=== PATIENT | female | born 1955 | race Asian ===

== ENCOUNTER 2018-08-13 12:03 | Day surgery (SDC) | payer OTHER, SELFPAY ==
--- NOTE | 2018-08-13 | PATH_ITS ---
[facility] Accession Number: [id number] . 01 Material submitted: . PART A: TRANSVERSE COLON POLYP PART B: SIGMOID COLON POLYP . 02 Diagnosis: A. Transverse Colon, Polyp, Biopsy: Benign lymphoid aggregate. . B. Sigmoid Colon, Polyp, Biopsy: Tubular adenoma. MRV/08/14/2018 . 02 Electronically signed: . Harriet Gamez MD, Pathologist NPI- [id number] . 01 Gross description: . Received two formalin-filled containers, both labeled with the patient's name: . A. In a container labeled transverse col. polyp, are two less than 0.1 cm to 0.3 cm portions of tissue, entirely submitted in cassette A. B. In a container labeled sigmoid col. polyp, are two 0.2-0.3 cm portions of tissue, entirely submitted in cassette B. ([id number]) /FRR . 02 Pathologist provided ICD-10: D12.5 . 02 CPT . 258824, 715835 Performed at: 01 [facility] [address], [place], [place] [id number] MD Luis F Ravi MD Phone: [phone] Performed at: 02 [facility] [address] [place], [place] [id number] MD Roberto Nobles MD Phone: [phone]
[2018-08-13] MEDS: SODIUM CHLORIDE 0.9% 1,000 ML 100 ML IV (12:18)
[2018-08-13 12:24] VITALS: BP 168/83; PULSE 76; RESP 12; TEMP 36.3; O2SAT 96; BMI 25.4
--- NOTE | 2018-08-13 13:37 | PM.HP.1 ---
History of Present Illness Date Patient Seen: 08/13/18 Time Patient Seen: 13:37 Chief complaint: [id number] Narrative: Colorectal cancer screening. Patient History Medical History Diabetes mellitus (Acute) Hypercholesterolemia (Acute) Hypertension (Acute) Family & Social History Social History: household members spouse Exam Vital Signs (past 8 hours): - 08/13/18 12:24 Temperature 97.3 F L Pulse Rate 76 Respiratory Rate 12 Blood Pressure 168/83 H Pulse Oximetry 96 Oxygen Delivery Method Room Air Narrative Exam Narrative: Oropharynx: Free of lesion Chest: Clear to auscultation and percussion Cardiac exam: No S3 or murmur Assessment & Plan Plan: Assessment/Plan Narrative: Need for screening colonoscopy. Sounds as if she has never had a complete screening colonoscopy in the past. Further recommendations will follow the results of the study.
--- NOTE | 2018-08-13 13:40 | P.HP_ITS ---
History of Present Illness Date Patient Seen: 08/13/18 Time Patient Seen: 13:37 Chief complaint: [id number] Narrative: Colorectal cancer screening. Patient History Medical History Diabetes mellitus (Acute) Hypercholesterolemia (Acute) Hypertension (Acute) Family & Social History Social History: household members spouse Exam Vital Signs (past 8 hours): - 08/13/18 12:24 Temperature 97.3 F L Pulse Rate 76 Respiratory Rate 12 Blood Pressure 168/83 H Pulse Oximetry 96 Oxygen Delivery Method Room Air Narrative Exam Narrative: Oropharynx: Free of lesion Chest: Clear to auscultation and percussion Cardiac exam: No S3 or murmur Assessment & Plan Plan: Assessment/Plan Narrative: Need for screening colonoscopy. Sounds as if she has never had a complete screening colonoscopy in the past. Further recommendations will follow the results of the study.
[2018-08-13] MEDS: fentaNYL 250 MCG/5 ML INJ IV (13:45)
--- NOTE | 2018-08-13 13:53 | PM.OP.ENDO ---
Operative Date/Time/Diagnoses Date of procedure: 08/13/18 Time of procedure: 13:53 Pre-op diagnosis: See indications Post-op diagnosis: same Procedure & Clinicians Study performed: Colonoscopy Same procedure as scheduled: Yes Indications: Screening Surgeon: Cassi Flores Procedure Notes Procedure in detail: After informed consent was obtained the patient was placed in the left lateral decubitus position. Video colonoscope was introduced the rectum slowly advanced to the cecum. On slow withdrawal mucosa was carefully examined. The scope was removed. The patient tolerated the procedure well. Blood loss none Complications none Sedation Fentanyl 100 mcg Versed 5 mg IV titration Total sedation time a 15 min Findings 1. 3 mm polyp in the transverse colon. Jumbo biopsy removed. 2. 5 mm polyp in the sigmoid colon at about 20 cm. Jumbo biopsy x2 removed completely. 3. Scattered diverticulosis 4. Otherwise negative colonoscopy to cecum We will be in touch regarding biopsies. She most likely will need follow-up colonoscopy in 5 years.
[2018-08-13 13:55] VITALS: BP 118/76; PULSE 78; RESP 14; TEMP 36.3; O2SAT 91
[2018-08-13] MEDS: MIDAZOLAM 5 MG/5 ML VIAL IV (13:56)
[2018-08-13 14:00] VITALS: BP 116/73; PULSE 78; RESP 14; O2SAT 92
[2018-08-13 14:05] VITALS: BP 131/91; PULSE 91; RESP 14; TEMP 36.1; O2SAT 96
[2018-08-13 14:10] VITALS: BP 127/84; PULSE 88; RESP 14; TEMP 36.3; O2SAT 96
[2018-08-13 14:19] VITALS: BP 141/84; PULSE 89; RESP 15; TEMP 36.6; O2SAT 94
== END 2018-08-13 14:45 | disposition home or self-care (01) ==
PROVIDERS: Visit Provider Internal Medicine Gastroenterology
PROC: 0DJD8ZZ Inspection of Lower Intestinal Tract, Via Natural or Artificial Opening Endoscopic (ICD-10-PCS; CPT 45378; principal; 2018-08-13 13:30)
DX: Z12.11 Encounter for screening for malignant neoplasm of colon (principal); D12.5 Benign neoplasm of sigmoid colon; K57.30 Diverticulosis of large intestine without perforation or abscess without bleeding; K63.5 Polyp of colon; E11.9 Type 2 diabetes mellitus without complications; E78.00 Pure hypercholesterolemia, unspecified; I10 Essential (primary) hypertension; Z79.84 Long term (current) use of oral hypoglycemic drugs; Z79.82 Long term (current) use of aspirin; Z79.899 Other long term (current) drug therapy
CPT/HCPCS: 45380; 88305; J2250; J3010

== ENCOUNTER → 2021-01-12 07:48 | Outpatient (CLI) | payer OTHER, SELFPAY ==
--- NOTE | 2021-01-12 07:49 | DI.US.S_ITS ---
PROCEDURE: US BREAST RT LIMITED COMPARISON: None. INDICATIONS: CLIP PLACEMENT CHECK FINDINGS: IMPRESSION: Dictated by: Clayton Hughes M.D. on 01/12/2021 at 12:00 Approved by: Clayton Hughes M.D. on 01/12/2021 at 12:03
--- NOTE | 2021-01-12 08:32 | DI.US.S_ITS ---
Date: 01/12/2021 08:32 At the request of: AMEE SCHNEIDER Procedure: US breast RT limited ULTRASOUND OF RIGHT BREAST: 01/12/2021 CLINICAL: [id number] clip placement. Comparison is made to exams dated: 11/30/2020 ultrasound biopsy, 11/30/2020 mammogram, 11/15/2020 ultrasound, [facility] 07/[facility]/2017 mammogram, and 03/19/2016 mammogram - [facility]. Real-time ultrasound of the right breast was performed. Olvera scale images of the real-time examination were reviewed. There is an irregular mass in the right breast at 12 o'clock posterior depth 5 cm from the nipple. This irregular mass is hypoechoic. There is an associated biopsy clip. IMPRESSION: KNOWN BIOPSY PROVEN MALIGNANCY The irregular mass in the right breast is a known biopsy positive for malignancy. The mass and biopsy clip are visualized with ultrasound, and ultrasound-guided wire localization is feasible. This exam was interpreted at Station ID: [id number]. Electronically Signed By: Clayton feliciano/bryanna:01/12/2021 12:03:29 Ultrasound BI-RADS: 6 Known biopsy proven malignancy
== END ==
PROVIDERS: PCP Family Medicine; Referring Provider Surgery; Visit Provider Surgery
DX: C50.811 Malignant neoplasm of overlapping sites of right female breast (principal)
CPT/HCPCS: 76642

== ENCOUNTER → 2021-01-16 10:22 | Outpatient (CLI) | payer OTHER, SELFPAY ==
[2021-01-16 12:02] LABS: COVID19 -Nasal RAPID Negative (Negative)
== END ==
PROVIDERS: PCP Family Medicine; Visit Provider Surgery
DX: Z01.812 Encounter for preprocedural laboratory examination (principal); Z20.822 Contact with and (suspected) exposure to COVID-19
CPT/HCPCS: 87635; C9803

== ENCOUNTER 2021-01-17 06:41 | Day surgery (SDC) | payer OTHER, SELFPAY ==
[2021-01-17] VITALS (11 sets, daily range): BP systolic 136–157; BP diastolic 73–86; PULSE 71–81; RESP 12–18; TEMP 36.2–37; O2SAT 92–100; BMI 23.4
--- NOTE | 2021-01-17 | PATH_ITS ---
[facility] Accession Number: [id number] . 01 Material submitted: . PART A: breast - BREAST RIGHT PART B: axilla - RIGHT AXILLA SENTINAL NODE . 01 Clinical history: . SDC A: SHORT STITCH SUPERIOR, LONG STITCH LATERAL . 01 Diagnosis: A. Right Breast, Lumpectomy: Invasive (ductal) carcinoma, grade 2 of 3 ([place] combined histologic grade, total score 6/9), with the following features: 1. Tumor size (invasive component): 6 mm by microscopic measurement (6 x 3 mm) 2. Nuclear pleomorphism: Intermediate. (2/3) 3. Mitotic rate: Low. (1/3) 4. Tubular differentiation: Little degree. (3/3) 5. Ductal carcinoma in situ: present, moderate nuclear grade without necrosis (cribriform pattern), largest linear span of 5 mm, involving blocks A7-A8. 6. Calcification: Present, in association with benign breast tissue. 7. Lymphatic invasion: Not identified. 8. Resection margins: - Invasive carcinoma: Negative, with the closest distance to the following margins as follows: - Posterior margin: 2.0 mm (in blocks A7 and A8). - Inferior margin: 5.5 mm. - Anterior and Superior margins: 7 mm. - All other margins: More than 10 mm. - Ductal carcinoma in situ: Negative, with the closest distance to the following margins as follows: - Posterior margin: 2.2 mm. - Inferior margin: 5.5 mm. - Anterior and Superior margins: 8 mm. - All other margins: More than 10 mm. 9. Prognostic markers (performed on prior biopsy, [facility] Case #[id number], Collection Date: 11/30/2020) with the following reported findings: Per the report: - Estrogen receptor: Positive. - Progesterone receptor: Positive. - HER2: Negative. 10. Regional lymph node status (see part B below): One sentinel lymph node, negative for malignancy (0/1). 11. Additional findings: - Skin and nipple are not present for evaluation. - Skeletal muscle is present and uninvolved. - Biopsy site changes and associated extensive giant cell reaction are present. - Background breast with microcystic duct dilatation, columnar cell change, secretory change, and stromal fibrosis. 12. Pathologic stage: pT1b pN0(sn) . B. Right Axillary [place] Lymph Node, Excisional Biopsy: One sentinel lymph node, negative for malignancy (0/1). [facility] 01/23/2021 1151 Local . 01 Electronically signed: . Arabella Holden MD, Pathologist NPI- [id number] . 01 Gross description: . A. The specimen is received in formalin, labeled right breast and consists of a right lumpectomy specimen. Weight: 10 grams. Measurement: 4.6 cm from medial to lateral by 4.0 cm from superior to inferior by 2.2 cm from anterior to posterior. Skin: Absent. Wire: Present, penetrating the lateral side and terminating at the medial side. Margins: The specimen is oriented with a short suture designated superior and a long suture designated lateral. The specimen is inked as follows: superior blue, inferior green, anterior red, posterior black, medial yellow and lateral orange. Sliced: Medial to lateral into 11 slices. Lesions: There is a 0.8 x 0.7 x 0.6 cm ayala firm presumed biopsy site within slices 7-9. No biopsy marker is identified. Distance to Margins: 0.2 cm from the posterior margin, 0.6 cm from the inferior margin, 0.7 cm from the superior margin, 1.0 cm from the anterior margin and greater than 1 cm from the medial and lateral margins. Other: The remaining cut surfaces are composed of approximately 65% ayala-yellow adipose tissue, 30% ayala-white fibrous tissue and 10% red-brown skeletal muscle. The specimen is entirely submitted: A1: slice 1, medial margin, perpendicularly sectioned. A2-A10: slices 2-10 (biopsy site in A7-A9). A11-A12: slice 11, lateral margin, perpendicularly sectioned. Formalin fixation time: Approximately 27 hours. Grossing/Staining of the specimen was reviewed with the PA by . . B. The specimen is received in formalin, labeled right axilla sentinel node and consists of a 2.5 x 2.0 x 1.0 cm ayala-yellow fragment of adipose tissue with a 1.4 x 1.0 x 0.7 cm lymph node. The lymph node is bisected and entirely submitted in cassette B1. (EA:[id number]) /MRV 01/23/2021 1015 Local . 01 Microscopic: . P63 and smooth muscle myosin immunostains are performed on block A8 in order to assess areas for carcinoma in situ close to cauterized margins. There is focal retention of myoepithelial markers in support of in-situ carcinoma and the margin details in the diagnosis. Deeper levels are examined on A8 and A7. Perineural invasion is present. . * This test was developed and its performance characteristics determined by [facility]. It has not been cleared or approved by the U.S. Food and Drug Administration. The FDA has determined that such clearance or approval is not necessary. This test is used for clinical purposes. It should not be regarded as investigational or for research. . 01 Pathologist provided ICD-10: C50.911 . 01 CPT . 824451, 268164, T65788, O45503 Performed at: 01 [facility] [address] [place] [address], [place], [place] [id number] MD Luis F Ravi MD Phone: [phone]
--- NOTE | 2021-01-17 | DI.MG.S_ITS ---
SPECIMEN: 01/17/2021 CLINICAL: Right breast specimen. Correlation is made to exams dated: 01/17/2021 mammogram - [facility], 11/30/2020 ultrasound biopsy, and 11/15/2020 mammogram - [facility]. The tip of the localizing wire is present. Also visualized within the specimen is the nearby biopsy clip. IMPRESSION: SPECIMEN The localizing wire and the biopsy clip are both within the specimen. This exam was interpreted at Station ID: [id number]. Clementina cortes/penrad:01/17/2021 12:07:27
--- NOTE | 2021-01-17 | DI.MG.S_ITS ---
UNILATERAL RIGHT DIGITAL DIAGNOSTIC MAMMOGRAM POST-NEEDLE BIOPSY: 01/17/2021 CLINICAL: Right breast cancer. Comparison is made to exams dated: 11/30/2020 ultrasound biopsy, 11/15/2020 mammogram - [facility], and 07/30/2017 mammogram - [facility]. There are scattered fibroglandular elements in right breast. There is a localization wire in the right breast at 12:00. IMPRESSION: KNOWN BIOPSY PROVEN MALIGNANCY Localization wire in the right breast at 12:00. This exam was interpreted at Station ID: [id number]. NOTE: For mammograms, a report in lay terms will be sent to the patient. Approximately 15% of breast malignancies will not be visualized mammographically. In the management of a palpable breast mass, a negative mammogram must not discourage biopsy of a clinically suspicious lesion. Electronically Signed By: Clementina Hong M.D. fx/:01/17/2021 11:41:12 ACR BI-RADS Category 6: Known biopsy proven malignancy 3346F
--- NOTE | 2021-01-17 06:45 | DI.NM.S_ITS ---
PROCEDURE: NM SENTINEL NODE W IMAGING RADIOPHARMACEUTICAL: 0.5-1.0 mCi Millipore filtered Tc-99m sulfur colloid. INDICATIONS: right breast cancer COMPARISON: [facility], US, US BREAST RT LIMITED, 01/12/2021, 8:38. [facility], , MM DIAGNOSTIC MAMMO UNILAT RT2D, 01/17/2021, 9:19. [facility], , US BREAST NEEDLE LOC RT, 01/17/2021, 8:58. TECHNIQUE: The area around the nipple was prepped and draped in a sterile fashion. Tc-99m sulfur colloid was injected intra-dermally in the outer edge of the areola in the right breast. Images were obtained subsequently. A body contour outline was obtained. FINDINGS: There is a sentinel lymph node(s) in the ipsilateral right axilla. IMPRESSION: A sentinel lymph node is present in the right axilla. Dictated by: Clementina Hong M.D. on 01/17/2021 at 9:58 Approved by: Clementina Hong M.D. on 01/17/2021 at 10:00
--- NOTE | 2021-01-17 06:45 | DI.US.S_ITS ---
NEEDLE LOCALIZATION RIGHT BREAST: 01/17/2021 CLINICAL: Pre-op wire localization with ultrasound guidance. Correlation is made to exams dated: 01/12/2021 ultrasound - [facility], 11/30/2020 ultrasound biopsy, 11/30/2020 mammogram, 11/15/2020 ultrasound, 11/15/2020 mammogram - [facility], and 07/30/2017 mammogram - [facility]. A wire localization was performed for the abnormality located in the right breast at 12 o'clock. The skin was prepped in the usual manner. A needle was inserted into the targeted area. Localization wire was placed and needle was removed. IMPRESSION: NEEDLE LOCALIZATION Wire localization for the abnormality in the right breast at 12 o'clock was successful. This exam was interpreted at Station ID: [id number]. Clementina Hong M.D. fx/:01/17/2021 10:05:53
--- NOTE | 2021-01-17 09:33 | SUR.PREOP ---
pt arrived back to pre-op and fluids were hung. pt placed on stretcher and call means within reach.
[2021-01-17] MEDS: LACTATED RINGERS 1,000 ML 100 ML IV (09:47)
--- NOTE | 2021-01-17 10:43 | PM.PREOP ---
Pre-operative Note Interval Note History & Physical reviewed/Exam performed by Physician: Yes Changes to H&P: No
[2021-01-17] MEDS: CEFAZOLIN 2 GM/100 ML FROZ.PIGGY IV (10:54)
--- NOTE | 2021-01-17 11:24 | SUR.OPER ---
Supine on padded OR bed, head on pillow, arms secured on padded arm boards at <90 degrees abduction, legs uncrossed, safety belt at thigh, tape over blanket over lower legs.
[2021-01-17] MEDS: BUPIVACAINE 0.25% (PF) VIAL 30 ML INJ (11:37)
[2021-01-17] MEDS: METHYLENE BLUE 50 MG/10 ML VIAL 25 MG INJ (11:37)
[2021-01-17] MEDS: HYDROMORPHONE 2 MG INJ IV ×4 (13:30→13:51)
[2021-01-17] MEDS: OXYCODONE/ACETAMINOPHEN 5/325 TABLET 1 TAB PO ×2 (13:30→13:59)
--- NOTE | 2021-01-17 13:42 | PM.OP.1 ---
Operative Date/Time/Diagnoses Date of procedure: 01/17/21 Time of procedure: 13:42 Pre-op diagnosis: Right breast cancer Post-op diagnosis: same Procedure & Clinicians Procedure: Right partial lumpectomy Right axillary sentinel node biopsy x 1 Same procedure as scheduled: Yes Indications: 65-year-old female with biopsy-proven right breast invasive ductal carcinoma, clinically node negative ER positive, ID positive, HER2 negative. Primary mass is 0.7 cm. Surgeon: Brian Grimm Anesthesia Type: General Operative Notes Findings: Right breast mass with wire and clip within the specimen [place] node identified by methylene blue dye and radioactive tracer Specimen(s): other (sentinel node. Right lumpectomy) Estimated Blood Loss (mL): 50 Procedure in detail: The patient underwent needle localized prior to the operation. They were brought to the operating room and placed supine on the table. Bilateral lower extremity compression devices were applied. They were intubated with an LMA. 3 ml of methlyene blue was injected into the dermal space around the areola and massaged into the tissue for 4 minutes. They were prepped and draped in sterile fashion. Time-out was performed. A curvilinear incision on the superior aspect of the right breast was made and subcutaneous tissues were divided. The localizing wire was identified and then brought back within the incision. The end of the wire was within a posterior depth breast mass just superficial to the pectoralis. The mass was excised with the wire and the clip. Specimen was marked short stitch superior long stitch lateral. Imaging demonstrated that the specimen contained the wire and the associated clip. Subcutaneous tissues were reapproximated with 3 0 Vicryl sutures skin closed with Monocryl followed by application of Dermabond. An incision was made in the right axilla overlaying the area with the greatest Neoprobe signal. Dissection was carried down through the subcutaneous tissue towards the chest wall guided by the Neoprobe. One sentinel node was found, the count was 47 it was slightly blue in its appearance. The node was removed the tissue was ligated with silk suture. The background count following removal of the node was 3. Hemostasis was achieved. The subcutaneous tissue was closed with vicryl the skin with 4-o monocryl followed by dermabond. The counts were correct. They emerged from anesthesia and were transferred to recovery in stable condition. Complications: none Post-operative Condition: stable Disposition: same day surgery
== END 2021-01-17 14:34 | disposition home or self-care (01) ==
PROVIDERS: PCP Family Medicine; Referring Provider Family Medicine; Visit Provider Surgery
PROC: (CPT 38500; principal; 2021-01-17 10:45)
DX: C50.911 Malignant neoplasm of unspecified site of right female breast (principal); Z17.0 Estrogen receptor positive status [ER+]; I10 Essential (primary) hypertension; E11.9 Type 2 diabetes mellitus without complications; E78.00 Pure hypercholesterolemia, unspecified; Z79.84 Long term (current) use of oral hypoglycemic drugs
CPT/HCPCS: 38500; 19125; 38900; 19285; 76098; 77065; 78195; A9541; C1819; J0690; J1100; J1170; J1885; J2250; J2405; J2704; J3010; Q9968

== ENCOUNTER → 2021-01-23 07:29 | Outpatient (CLI) | payer OTHER, SELFPAY ==
--- NOTE | 2021-01-23 07:30 | DI.ECHO.S_ITS ---
[facility]---------+ [facility] +---------+ : : [address] : : : : [id number] : : : : Phone: [phone] Echocardiogram Report + + :Name: NATALIO SHAFER Study Date: 01/23/2021 Height: 60 in : :[facility] ReadingLocation: Weight: 122 lb : : Gender: Female BSA: 1.5 m2 : :: 1955 Age: 65 yrs BP: 164/97 mmHg: :Reason For Study: BREAST CANCER : :Ordering Physician: VIRAJ, : :TYE Performed By: Mayra Huff : :Referring: TYE CALI : + + Interpretation Summary Normal left ventricle size with ejection fraction 60-65%. Left ventricular global longitudinal strain average is -17.0%. Mild aortic valve sclerosis. No valvular regurgitation. Procedure: A two-dimensional transthoracic echocardiogram with color flow and Doppler was performed. The study quality was technically adequate. There is no prior echocardiogram noted for this patient. The patient was in sinus rhythm with heart rates between 70-80 bpm during the exam. Left Ventricle: The left ventricle is normal in size and wall thickness. The ejection fraction is estimated to be 60-65%. Left ventricular global longitudinal strain average is -17.0%. There are no focal wall motion abnormalities. Diastolic parameters suggest probable normal left ventricular diastolic function and normal filling pressures. Right Ventricle: The right ventricle grossly appears normal in size with probable normal systolic function. Atria: Both atria are normal in size. There is no Doppler evidence for an interatrial shunt. Mitral Valve: The mitral valve is normal in structure and function. There is trace mitral regurgitation. Aortic Valve: The aortic valve is trileaflet. The aortic valve opens well. There is mild aortic valve sclerosis. There is no aortic valve stenosis. No aortic regurgitation is present. Tricuspid Valve: The tricuspid valve is normal in structure and function. The right ventricular systolic pressure is estimated to be at least 25 mmHg based on an estimated right atrial pressure of 3 mm Hg. There is trace tricuspid regurgitation. Pulmonic Valve: The pulmonic valve leaflets are thin and pliable; valve motion is normal. There is no pulmonic valvular regurgitation. Great Vessels: The aortic root is normal size. The ascending aorta is mildly enlarged. The IVC is of normal diameter and collapses greater than 50% with a sniff. This suggests a low right atrial pressure of 3 mm Hg. Pericardium/ Pleura There is no pericardial effusion. There is no pleural effusion. MMode/2D Measurements & Calculations LVIDd: 4.0 cm LVOT diam: 1.9 cm LVIDs: 2.7 cm Ao root diam: 2.7 cm FS: 31.2 % asc Aorta Diam: 3.5 cm EPSS: 0.86 cm Ao Arch Diam (Prox Trans): 2.9 cm IVSd: 1.1 cm LVPWd: 0.86 cm LV armenta. diameter/BSA (cm/m^2): 2.6 LV sys. diameter/BSA (cm/m^2): 1.8 LA A2 area: 15.0 cm2 RA long axis: 4.2 cm LA A4 area: 13.3 cm2 RA area: 11.7 cm2 LA length (vol): 4.4 cm RA vol: 27.3 ml LA vol: 38.7 ml RA : 18.0 ml/m2 LA vol index: 25.6 ml/m2 IVC diam: 1.1 cm RVD1 (basal): 3.0 cm TAPSE: 1.6 cm Doppler Measurements & Calculations Ao V2 max: 121.6 cm/sec LVOT Max Brendan: 90.4 cm/sec Ao V2 mean: 88.9 cm/sec LV V1 max P.3 mmHg Ao max P.9 mmHg LV V1 VTI: 20.1 cm Ao mean P.4 mmHg YOLANDA(I,D): 2.5 cm2 Ao V2 VTI: 22.7 cm YOLANDA(V,D): 2.1 cm2 sev ratio: 0.89 YOLANDA indexed to BSA (cm^2/m^2): 1.6 MV E max brendan: 70.2 cm/sec TR max brendan: 235.0 cm/sec MV A max brendan: 84.5 cm/sec TR max P.1 mmHg MV E/A: 0.83 PA V2 max: 77.9 cm/sec Med Peak E' Brendan: 7.8 cm/sec PA V2 mean: 49.5 cm/sec E/E' med: 9.0 PA mean P.2 mmHg Lat Peak E' Brendan: 7.8 cm/sec PA pr(Accel): 51.6 mmHg E/E' lat: 9.0 E/e' average: 9.0 MV dec time: 0.25 sec [facility] 55.7 ml Electronically signed by: Soila Chavez on Reading Physician:01/23/2021 10:21 AM
== END ==
PROVIDERS: PCP Family Medicine; Referring Provider Internal Medicine Hematology & Oncology; Visit Provider Internal Medicine Hematology & Oncology
DX: I77.89 Other specified disorders of arteries and arterioles (principal); C50.411 Malignant neoplasm of upper-outer quadrant of right female breast; Z17.0 Estrogen receptor positive status [ER+]
CPT/HCPCS: 93306

== ENCOUNTER → 2021-05-01 08:04 | Outpatient (CLI) | payer OTHER, SELFPAY ==
[2021-05-01 08:28] LABS: Add Manual Diff / Slide Review NO; Basophils Absolute Auto 0 /uL (0-100); Basophils Percent Auto 0.6 % (0-2); Eosinophils Absolute Auto 100 /uL (0-450); Eosinophils Percent Auto 1.8 % (2-4); Hematocrit 45.4 % (36-46); Hemoglobin 15.4 g/dL (12.0-16.0); Lymphocytes Absolute Auto 1000 /uL (1100-4500); Lymphocytes Percent Auto 15.7 % (25-40); Mean Corpuscular HGB Conc 33.9 % (30-36); Mean Corpuscular Hemoglobin 27.4 PG (26-34); Mean Corpuscular Volume 80.9 fL (80-100); Monocytes Absolute Auto 400 /uL (0-900); Monocytes Percent Auto 6.2 % (3-14); Neutrophils Absolute Auto 4600 /uL (1500-7000); Neutrophils Percent Auto 75.7 % (50-75); Platelet Count 283 X10^3/uL (150-400); Red Blood Cell Count 5.61 X10^6/uL (4.0-5.2); Red Cell Distribution Width 13.9 % (11.6-14.8); White Blood Cell Count 6.1 X10^3/uL (4.5-11.0)
[2021-05-01 08:36] LABS: Alanine Aminotransferase 24 IU/L (<35); Albumin 4.6 g/dL (3.5-5.0); Albumin Globulin Ratio 1.3 (1.0-2.8); Alkaline Phosphatase 81 U/L (38-126); Aspartate Aminotransferase 22 IU/L (14-36); BUN Creatinine Ratio 24.4 (6-22); Bilirubin Total 0.5 mg/dL (0.2-1.3); Blood Urea Nitrogen 20 mg/dL (7-17); Calcium 9.9 mg/dL (8.4-10.2); Carbon Dioxide 25 mmol/L (22-32); Chloride 103 mmol/L (98-107); Estimated Glomerular Filt Rate > 60.0 mL/min (>60); Globulin 3.6 g/dL (1.7-4.1); Glucose 255 mg/dL (80-110); HEMOLYSIS < 15 (0-50); Potassium 3.9 mmol/L (3.4-5.1); Sodium 139 mmol/L (137-145); Total Protein 8.2 g/dL (6.3-8.2)
== END ==
PROVIDERS: PCP Family Medicine; Referring Provider Internal Medicine Hematology & Oncology; Visit Provider Internal Medicine Hematology & Oncology
DX: M81.0 Age-related osteoporosis without current pathological fracture (principal); Z17.0 Estrogen receptor positive status [ER+]; C50.411 Malignant neoplasm of upper-outer quadrant of right female breast
CPT/HCPCS: 36415; 77080; 80053; 85025

== ENCOUNTER → 2021-05-18 07:58 | Outpatient (CLI) | payer OTHER, SELFPAY ==
--- NOTE | 2021-05-18 08:00 | DI.US.S_ITS ---
LIMITED ULTRASOUND OF RIGHT BREAST: 05/18/2021 CLINICAL: Palpable mass above rt nipple. HX of breast CA in right breast w lumpectomy. Comparison is made to exams dated: 05/18/2021 mammogram, 01/12/2021 ultrasound, 01/17/2021 mammogram - [facility], 11/15/2020 mammogram - [facility], 07/30/2017 mammogram - [facility], and 11/15/2020 ultrasound - [facility]. Real-time ultrasound of the right breast was performed. Olvera scale images of the real-time examination were reviewed. No significant abnormalities were seen sonographically in the right breast. IMPRESSION: NEGATIVE There is no sonographic evidence of malignancy. There is no abnormality seen in the right breast to correspond with the palpable abnormality at 12 o'clock in the sub-areolar depth, however, clinical correlation is recommended. A 1 year screening mammogram is recommended. Future imaging is recommended as follows: 11/16/2021 screening mammogram. This exam was interpreted at Station ID: [id number]. Electronically Signed By: Clayton feliciano/bryanna:05/18/2021 10:20:33 letter sent: Clinical Evaluation Ultrasound BI-RADS: 1 Negative
--- NOTE | 2021-05-18 08:00 | DI.MG.S_ITS ---
UNILATERAL RIGHT DIGITAL DIAGNOSTIC MAMMOGRAM 3D/2D POST LUMPECTOMY: 05/18/2021 CLINICAL: Right breast lump. Comparison is made to exams dated: 01/17/2021 localization, 01/17/2021 mammogram, 01/12/2021 ultrasound - [facility], 11/30/2020 ultrasound biopsy, 11/15/2020 mammogram - [facility], and 07/30/2017 mammogram - [facility]. There are scattered fibroglandular elements in right breast. The right breast has post-operative findings. There is dense breast tissue and scarring adjacent to the skin marker in the right breast retroareolar region. No significant masses, calcifications, or other findings are seen in the breast. IMPRESSION: INCOMPLETE: NEEDS ADDITIONAL IMAGING EVALUATION Targeted ultrasound is recommended for further evaluation, which will be scheduled immediately following this exam. Future imaging is recommended as follows: 11/16/2021 screening mammogram. This exam was interpreted at Station ID: [id number]. NOTE: For mammograms, a report in lay terms will be sent to the patient. Approximately 15% of breast malignancies will not be visualized mammographically. In the management of a palpable breast mass, a negative mammogram must not discourage biopsy of a clinically suspicious lesion. Electronically Signed By: Clayton feliciano/bryanna:05/18/2021 10:16:31 ACR BI-RADS Category 0: Incomplete [id number]
== END ==
PROVIDERS: PCP Family Medicine; Referring Provider Internal Medicine Hematology & Oncology; Visit Provider Internal Medicine Hematology & Oncology
DX: C50.411 Malignant neoplasm of upper-outer quadrant of right female breast (principal); R92.8 Other abnormal and inconclusive findings on diagnostic imaging of breast; N63.10 Unspecified lump in the right breast, unspecified quadrant; Z17.0 Estrogen receptor positive status [ER+]
CPT/HCPCS: 76642; 77065; G0279

== ENCOUNTER → 2022-03-06 10:03 | Outpatient (CLI) | payer OTHER, SELFPAY ==
--- NOTE | 2022-03-06 | DI.MG.S_ITS ---
BILATERAL DIGITAL SCREENING MAMMOGRAM 3D/2D WITH CAD: 03/06/2022 CLINICAL: Routine screening. Personal history of right breast cancer. Comparison is made to exams dated: 05/18/2021 mammogram - [facility], 11/15/2020 mammogram - [facility], 07/30/2017 mammogram - [facility], and 11/30/2020 mammogram - [facility]. There are scattered fibroglandular elements in both breasts. Current study was also evaluated with a Computer Aided Detection (CAD) system. There are benign post operative findings in the right breast. No significant masses, calcifications, or other findings are seen in either breast. There has been no significant interval change. IMPRESSION: BENIGN There is no mammographic evidence of malignancy. A 1 year screening mammogram is recommended. This exam was interpreted at Station ID: [id number]. NOTE: For mammograms, a report in lay terms will be sent to the patient. Approximately 15% of breast malignancies will not be visualized mammographically. In the management of a palpable breast mass, a negative mammogram must not discourage biopsy of a clinically suspicious lesion. Electronically Signed By: Marco A long/bryanna:03/06/2022 13:08:46 letter sent: Normal Exam ACR BI-RADS Category 2: Benign Finding(s) 3342F
== END ==
PROVIDERS: PCP Family Medicine; Referring Provider Family Medicine; Visit Provider Family Medicine
DX: Z12.31 Encounter for screening mammogram for malignant neoplasm of breast (principal); Z85.3 Personal history of malignant neoplasm of breast
CPT/HCPCS: 77063; 77067

== ENCOUNTER → 2023-01-07 13:56 | Outpatient (CLI) | payer MEDICARE, OTHER, SELFPAY ==
[2023-01-07 15:05] LABS: Alanine Aminotransferase 21 IU/L (<35); Albumin 4.7 g/dL (3.5-5.0); Albumin Globulin Ratio 1.2 (1.0-2.8); Alkaline Phosphatase 80 U/L (38-126); Aspartate Aminotransferase 23 IU/L (14-36); BUN Creatinine Ratio 24.3 (6-22); Bilirubin Total 0.5 mg/dL (0.2-1.3); Blood Urea Nitrogen 18 mg/dL (7-17); Calcium 9.8 mg/dL (8.4-10.2); Carbon Dioxide 30 mmol/L (22-32); Chloride 100 mmol/L (98-107); Cholesterol 111 mg/dL (140-199); Estimated Glomerular Filt Rate > 60 mL/min (>60); Globulin 3.8 g/dL (1.7-4.1); Glucose 127 mg/dL (80-110); HDL Cholesterol 40 mg/dL (40-60); HEMOLYSIS < 15 (0-50); LDL Cholesterol Calculated 43 mg/dL (<100); Potassium 3.4 mmol/L (3.4-5.1); Sodium 145 mmol/L (137-145); Total Protein 8.5 g/dL (6.3-8.2); Triglycerides 140 mg/dL (35-150)
[2023-01-07 16:15] LABS: Creatinine Urine Random 47.5 mg/dL
[2023-01-07 16:19] LABS: Microalbumi Creatinin Ratio Ur 252.6 ug/mg CR (<30)
== END ==
PROVIDERS: PCP Family Medicine; Referring Provider Family Medicine; Visit Provider Family Medicine
DX: E78.5 Hyperlipidemia, unspecified (principal); E11.9 Type 2 diabetes mellitus without complications; I10 Essential (primary) hypertension
CPT/HCPCS: 36415; 80053; 80061; 82043; 82570

== ENCOUNTER → 2023-03-07 07:57 | Outpatient (CLI) | payer MEDICARE, OTHER, SELFPAY ==
--- NOTE | 2023-03-07 08:00 | DI.MG.S_ITS ---
BILATERAL DIGITAL SCREENING MAMMOGRAM 3D/2D WITH CAD: 03/07/2023 CLINICAL: Routine screening. Personal history of right breast cancer. Comparison is made to exams dated: 03/06/2022 mammogram - [facility], 11/15/2020 mammogram - [facility], 01/17/2021 mammogram - [facility], and 11/30/2020 mammogram - [facility]. There are scattered areas of fibroglandular density in both breasts (category b / 25%-50% glandular tissue). Current study was also evaluated with a Computer Aided Detection (CAD) system. There are benign post operative findings in the right breast. No significant masses, calcifications, or other findings are seen in either breast. There has been no significant interval change. IMPRESSION: BENIGN There is no mammographic evidence of malignancy. A 1 year screening mammogram is recommended. This exam was interpreted at Station ID: [id number]. NOTE: For mammograms, a report in lay terms will be sent to the patient. Approximately 15% of breast malignancies will not be visualized mammographically. In the management of a palpable breast mass, a negative mammogram must not discourage biopsy of a clinically suspicious lesion. Electronically Signed By: Jesus brothers/bryanna:03/07/2023 10:20:12 letter sent: Normal Exam ACR BI-RADS Category 2: Benign Finding(s) 3342F
== END ==
PROVIDERS: PCP Family Medicine; Referring Provider Internal Medicine Hematology & Oncology; Visit Provider Internal Medicine Hematology & Oncology
DX: Z12.31 Encounter for screening mammogram for malignant neoplasm of breast (principal); C50.411 Malignant neoplasm of upper-outer quadrant of right female breast; Z17.0 Estrogen receptor positive status [ER+]
CPT/HCPCS: 77063; 77067

== ENCOUNTER → 2023-03-20 08:06 | Outpatient (CLI) | payer MEDICARE, OTHER, SELFPAY ==
--- NOTE | 2023-03-20 08:07 | DI.MG.S_ITS ---
UNILATERAL RIGHT DIGITAL DIAGNOSTIC MAMMOGRAM 3D/2D POST LUMPECTOMY: 03/20/2023 CLINICAL: Right breast lump. Comparison is made to exams dated: 03/07/2023 mammogram, 03/06/2022 mammogram, and 05/18/2021 [facility] [place] [facility] [place]. There are scattered areas of fibroglandular density in the right breast (category b / 25%-50% glandular tissue). There are stable benign post operative changes and scar markers in the right breast. No significant masses, calcifications, or other findings are seen in the breast. Specifically, no finding to correspond to the patient's palpable abnormality. IMPRESSION: INCOMPLETE: NEEDS ADDITIONAL IMAGING EVALUATION No change in right breast post surgical changes. There is no abnormality seen in the right breast to correspond with the palpable abnormality at 10 o'clock. Ultrasound is recommended for full evaluation of this area. This was performed immediately following this exam. Future imaging is recommended as follows: 03/07/2024 screening mammogram. This exam was interpreted at Station ID: [id number]. NOTE: For mammograms, a report in lay terms will be sent to the patient. Approximately 15% of breast malignancies will not be visualized mammographically. In the management of a palpable breast mass, a negative mammogram must not discourage biopsy of a clinically suspicious lesion. Electronically Signed By: Lana hoover/:03/20/2023 10:08:27 Entry: - 03/20/2023 10:08:27 ACR BI-RADS Category 0: Incomplete 3340F
--- NOTE | 2023-03-20 08:07 | DI.US.S_ITS ---
LIMITED ULTRASOUND OF RIGHT BREAST: 03/20/2023 CLINICAL: Palpable right breast lump. Comparison is made to exams dated: 03/20/2023 mammogram, 03/07/2023 mammogram, 03/06/2022 mammogram, 05/18/2021 ultrasound, and 05/18/2021 mammogram - [facility]. Ultrasound of the right breast 10-11 o'clock region was performed. Olvera scale images of the real-time examination were reviewed. No significant abnormalities were seen sonographically in the right breast. Specifically, no finding to correspond to the patient's palpable abnormality. There is a ridge of benign fatty tissue present in the area palpated. IMPRESSION: NEGATIVE There is no sonographic evidence of malignancy. Return to annual mammogram screening schedule is recommended. Future imaging is recommended as follows: 03/07/2024 screening mammogram. Findings and recommendations were conveyed to the patient at time of exam. This exam was interpreted at Station ID: [id number]. Electronically Signed By: Lana hoover/:03/20/2023 09:30:55 letter sent: Normal Exam Ultrasound BI-RADS: 1 Negative
== END ==
PROVIDERS: PCP Family Medicine; Referring Provider Internal Medicine Hematology & Oncology; Visit Provider Internal Medicine Hematology & Oncology
DX: C50.411 Malignant neoplasm of upper-outer quadrant of right female breast (principal); Z17.0 Estrogen receptor positive status [ER+]; N63.11 Unspecified lump in the right breast, upper outer quadrant; R92.2 Inconclusive mammogram
CPT/HCPCS: 76642; 77065; G0279

== ENCOUNTER → 2023-04-05 08:42 | Outpatient (CLI) | payer MEDICARE, OTHER, SELFPAY | PROVIDERS: PCP Family Medicine; Referring Provider Family Medicine; Visit Provider Family Medicine | DX: I10 Essential (primary) hypertension (principal) | CPT/HCPCS: 93005 ==

== ENCOUNTER → 2023-11-13 10:48 | Outpatient (CLI) | payer MEDICARE, OTHER, SELFPAY ==
[2023-11-13 12:46] LABS: Hemoglobin A1C% w Est Avg Glu 7.9 % (4.0-6.0)
[2023-11-13 16:32] LABS: HIV 1 & 2 Ab/Ag 4th Gen Combo NEGATIVE (NEGATIVE); Hep C Virus Ab w/Reflex Quant NEGATIVE s/c (NEGATIVE)
== END ==
PROVIDERS: PCP Family Medicine; Referring Provider Family Medicine; Visit Provider Family Medicine
DX: Z11.59 Encounter for screening for other viral diseases (principal); E11.8 Type 2 diabetes mellitus with unspecified complications; Z11.4 Encounter for screening for human immunodeficiency virus [HIV]; E11.29 Type 2 diabetes mellitus with other diabetic kidney complication; R80.9 Proteinuria, unspecified
CPT/HCPCS: 36415; 83036; 86803; 87389

== ENCOUNTER → 2024-01-23 08:51 | Outpatient (CLI) | payer MEDICARE, OTHER, SELFPAY ==
[2024-01-23 10:08] LABS: Hemoglobin A1C% w Est Avg Glu 6.7 % (4.0-6.0)
== END ==
PROVIDERS: PCP Family Medicine; Referring Provider Family Medicine; Visit Provider Family Medicine
DX: E11.8 Type 2 diabetes mellitus with unspecified complications (principal)
CPT/HCPCS: 36415; 83036

== ENCOUNTER → 2024-05-18 07:51 | Outpatient (CLI) | payer MEDICARE, OTHER, SELFPAY ==
[2024-05-18 08:51] LABS: Add Manual Diff / Slide Review NO; Basophils Absolute Auto 0 /uL (0-100); Basophils Percent Auto 0.4 % (0-2); Eosinophils Absolute Auto 100 /uL (0-450); Eosinophils Percent Auto 1.3 % (2-4); Hematocrit 45.4 % (36-46); Hemoglobin 15.2 g/dL (12.0-16.0); Lymphocytes Absolute Auto 1200 /uL (1100-4500); Lymphocytes Percent Auto 15.1 % (25-40); Mean Corpuscular HGB Conc 33.6 % (30-36); Mean Corpuscular Hemoglobin 27.8 PG (26-34); Mean Corpuscular Volume 82.8 fL (80-100); Monocytes Absolute Auto 400 /uL (0-900); Neutrophils Absolute Auto 6100 /uL (1500-7000); Neutrophils Percent Auto 78.2 % (50-75); Platelet Count 285 X10^3/uL (150-400); Red Blood Cell Count 5.48 X10^6/uL (4.0-5.2); Red Cell Distribution Width 14.5 % (11.6-14.8); White Blood Cell Count 7.8 X10^3/uL (4.5-11.0)
[2024-05-18 09:23] LABS: Alanine Aminotransferase 23 IU/L (<35); Albumin 4.5 g/dL (3.5-5.0); Albumin Globulin Ratio 1.4 (1.0-2.8); Alkaline Phosphatase 82 U/L (38-126); Aspartate Aminotransferase 22 IU/L (14-36); BUN Creatinine Ratio 21.1 (6-22); Bilirubin Total 0.8 mg/dL (0.2-1.3); Blood Urea Nitrogen 19 mg/dL (7-17); Calcium 9.7 mg/dL (8.4-10.2); Carbon Dioxide 28 mmol/L (22-32); Chloride 106 mmol/L (98-107); Cholesterol 121 mg/dL (140-199); Estimated Glomerular Filt Rate > 60 mL/min (>60); Globulin 3.2 g/dL (1.7-4.1); Glucose 124 mg/dL (80-110); HDL Cholesterol 51 mg/dL (40-60); HEMOLYSIS < 15 (0-50); Hemoglobin A1C% w Est Avg Glu 7.2 % (4.0-6.0); LDL Cholesterol Calculated 40 mg/dL (<100); Potassium 3.8 mmol/L (3.4-5.1); Sodium 139 mmol/L (137-145); Total Protein 7.7 g/dL (6.3-8.2); Triglycerides 152 mg/dL (35-150)
== END ==
PROVIDERS: PCP Family Medicine; Referring Provider Family Medicine; Visit Provider Family Medicine
DX: E11.8 Type 2 diabetes mellitus with unspecified complications (principal); E11.29 Type 2 diabetes mellitus with other diabetic kidney complication; R80.9 Proteinuria, unspecified; E78.5 Hyperlipidemia, unspecified; I10 Essential (primary) hypertension
CPT/HCPCS: 36415; 80053; 80061; 83036; 85025

== ENCOUNTER → 2024-08-18 07:40 | Outpatient (CLI) | payer MEDICARE, OTHER, SELFPAY ==
[2024-08-18 08:32] LABS: Hemoglobin A1C% w Est Avg Glu 7.7 % (4.0-6.0)
== END ==
PROVIDERS: PCP Family Medicine; Referring Provider Family Medicine; Visit Provider Family Medicine
DX: E11.8 Type 2 diabetes mellitus with unspecified complications (principal)
CPT/HCPCS: 36415; 83036

== ENCOUNTER → 2024-08-27 09:50 | Outpatient (CLI) | payer MEDICARE, OTHER, SELFPAY ==
--- NOTE | 2024-08-27 09:51 | DI.RAD.S_ITS ---
PROCEDURE: XR DEXA AXIAL SKELETON INDICATIONS: screening COMPARISON: [facility], CR, XR DEXA AXIAL SKELETON, 05/01/2021, 9:12. FINDINGS: Lumbar Spine: Bone mineral density is 0.886 g/cm2, T score -1.5. Prior DEXA was performed using dissimilar scan type or analysis method. Left Hip: Bone mineral density 0.715 g/cm2, T score -1.9. Prior DEXA was performed using dissimilar scan type or analysis method. Left Femoral Neck: Bone mineral density 0.588 g/cm2, T score -2.4. Right Hip: Bone mineral density 0.733 g/cm2, T score -1.7. Prior DEXA was performed using dissimilar scan type or analysis method. Right Femoral Neck: Bone mineral density 0.597 g/cm2, T score -2.3. Fracture Risk Calculation (when applicable): 10-year fracture risk of a major osteoporotic fracture 6.9 % and of a hip fracture 1.4 %. (T score greater or equal to -1.0 to: NORMAL) (T score from -1.1 to -2.4: OSTEOPENIA) (T score less than or equal to -2.5: OSTEOPOROSIS) IMPRESSION: By WHO criteria, patient has osteopenia. Follow-up guidelines as follows: Osteoporosis: Consider a repeat DEXA and Vertebral Fracture Assessment (VFA) exam in 2 years or sooner if medically necessary, to reassess this patient's status. Osteopenia: Consider a repeat DEXA in 2-3 years to reassess this patient's status, or if there is a new clinical indication. Normal: Consider a repeat DEXA in 5 years or sooner, or if there is a new clinical indication. All treatment decisions require clinical judgment and consideration of individual patient factors, including patient preferences, comorbidities, previous drug use, risk factors not captured in the FRAX model (e.g., frailty, falls, vitamin D deficiency, increased bone turnover, interval significant decline in bone density ) and possible under- or over-estimation of fracture risk by FRAX. In addition, the NOF Guide recommends that FDA-approved medical therapies be considered in postmenopausal women and men age >= 50 years with a: * Hip or vertebral (clinical or morphometric) fracture * T-score of <=-2.5 at the spine or hip * Ten-year fracture probability by FRAX of >= 3% for hip fracture or >=20% for major osteoporotic fracture. People with diagnosed cases of osteoporosis or at high risk for fracture should have regular bone mineral density tests. For patients eligible for Medicare, routine testing is allowed once every 2 years. The testing frequency can be increased to one year for patients who have rapidly progressing disease, those who are receiving or discontinuing medical therapy to restore bone mass, or have additional risk factors. Approved by: Clayton Hughes M.D. on 08/27/2024 at 20:28
== END ==
LOC: RAD 09:51
PROVIDERS: PCP Family Medicine; Referring Provider Family Medicine; Visit Provider Family Medicine
DX: M81.0 Age-related osteoporosis without current pathological fracture (principal); E11.8 Type 2 diabetes mellitus with unspecified complications; E11.29 Type 2 diabetes mellitus with other diabetic kidney complication; R80.9 Proteinuria, unspecified; Z11.59 Encounter for screening for other viral diseases; Z11.4 Encounter for screening for human immunodeficiency virus [HIV]
CPT/HCPCS: 77080

== ENCOUNTER → 2025-02-09 08:15 | Outpatient (CLI) | payer MEDICARE, OTHER, SELFPAY ==
[2025-02-09 09:38] LABS: Hemoglobin A1C% w Est Avg Glu 9.3 % (4.0-6.0)
== END ==
PROVIDERS: PCP Family Medicine; Referring Provider Family Medicine; Visit Provider Family Medicine
DX: E11.8 Type 2 diabetes mellitus with unspecified complications (principal)
CPT/HCPCS: 36415; 83036